=== PATIENT | female | born 1995 | race Caucasian/White ===

== ENCOUNTER 2017-01-04 14:45 | Emergency (ER) | payer OTHER ==
[~2017-01-04] VITALS: Ht 172.7 cm; Wt 73.0 kg
[~2017-01-04 14:45] MED LIST: AMOX1TAB10 PO; IBUP400T22 PO; PREN1TAB49 PO; PRO20 PO
[2017-01-04 14:52] VITALS: Ht 172.7 cm; Wt 73.0 kg
--- NOTE | 2017-01-04 15:36 | ERD ---
ER Documentation Chief Complaint Date/Time DATE: 01/04/17 TIME: 15:34 Chief Complaint PT with rash to B rash , pt house treated for bed bugs. HPI 71-year-old female presents in with a rash. She previously had bedbugs but thinks they have resolved. She has already cleaned her house and washed all of the bedding. She has a rash on her arms mostly. It is itching it is not painful. She has had no fevers. ROS All systems reviewed and are negative except as per history of present illness. Medications Home Meds Active Scripts Ibuprofen* (Motrin*) 400 Mg Tab, 400 MG PO Q6, #30 TAB Prov:FERNANDO,EMANUEL 12/22/16 Amoxicillin/Potassium Clav (Amox-Clav 875-125 mg Tablet) 875-125 mg Tab, 1 TAB PO BID for 10 Days, #20 TAB Prov:FERNANDO,EMANUEL 12/22/16 Reported Medications Nifedipine* (Procardia*) 20 Mg Cap, 20 MG PO Q6, CAP 02/12/16 Vits W-Ca,Fe,Fa(<1MG) () 1 Tab Tablet, 1 TAB PO DAILY 02/07/12 Allergies Allergies: Coded Allergies: No Known Drug Allergies (Verified Allergy, Unknown, 02/20/16) PMhx/Soc History of Surgery: Yes (C SECTION X 2 ) Anesthesia Reaction: No Hx Neurological Disorder: No Hx Respiratory Disorders: No Hx Cardiac Disorders: No Hx Psychiatric Problems: No Hx Miscellaneous Medical Probl: Yes (2 PREVIOUS PREGNANCIES BOTH PREMATURE DELIVERY) Hx Alcohol Use: No Hx Substance Use: No Hx Tobacco Use: No Physical Exam Vitals Vital Signs Date Time Temp Pulse Resp B/P Pulse Ox O2 Delivery O2 Flow Rate FiO2 01/04/17 14:52 99.6 97 18 152/75 98 Physical Exam Const: [] No distress Head: Atraumatic Eyes: Normal Conjunctiva ENT: Normal External Ears, Nose and Mouth. Neck: Full range of motion..~ No meningismus. Back: No midline or flank tenderness Ext: No cyanosis, or edema, bilateral forearms with small erythematous lesions with areas of punctate portions at the center. Neur: Awake and alert Psych: Normal Mood and Affect Procedures/MDM Bedbug rash. Going to treat with permethrin cream. Primary care follow-up in 2 3 days and return precautions. Departure Diagnosis: Primary Impression: Bedbug bite Condition: Stable ALFONZO ANN DO Jan 04, 2017 15:36
[2017-01-04] MEDS ORDERED: ELIM TOP (15:37)
== END 2017-01-04 15:44 | disposition home or self-care (01) ==
LOC: FTE 14:45
DX: S50.862A Insect bite (nonvenomous) of left forearm, initial encounter (principal); S50.861A Insect bite (nonvenomous) of right forearm, initial encounter; W57.XXXA Bitten or stung by nonvenomous insect and other nonvenomous arthropods, initial encounter; Y92.9 Unspecified place or not applicable
CPT/HCPCS: 99283

== ENCOUNTER 2017-01-12 05:40 | Emergency (ER) | payer OTHER ==
[~2017-01-12] VITALS: Ht 160 cm; Wt 72.7 kg
[~2017-01-12 05:40] MED LIST changes: +BENZ100C70 PO; +BENZ1LOZ52 MM; +ELIM TOP; +FERR160T25 PO; +FERR27TA PO; +IBUP-1542 PO; +NIFE30TA2 PO; +ONDA4TAB8 PO; +PREN1TAB17 PO; +PRENATALS; +[UNRECOGNIZED DRUG - REMARK]
[2017-01-12 05:43] VITALS: Ht 160 cm; Wt 72.7 kg
--- NOTE | 2017-01-12 06:36 | ERD ---
ER Documentation Chief Complaint Date/Time DATE: 01/12/17 TIME: 06:24 Chief Complaint gen. abd pain +n/v since 3am. HPI 22-year-old female presents emergency department for abdominal pain and vomiting since 3 AM. Stated that she vomited more than 5 times in the past 24 hours with food particles. Also stated that she felt like she had a fever last night but never took her temperature. Denies headache, shoulder pain, chest pain, shortness of breath, difficulty breathing when lying flat, trauma, , possibility of being , urinary symptoms, vaginal discharge, recent exposure to any illness, recent travel, recent antibiotic use in the last 3 months. No known drug allergies. No past medical history.Surgical history of C- section. Does not take any prescription medication at home. Social: Works at [employer]. Denies smoking, use of alcohol, use of illegal drugs. LMP was December 19, 2016. A2. ROS All systems reviewed and are negative except as per history of present illness. Medications Home Meds Active Scripts Metoclopramide* (Reglan*) 10 Mg Tablet, 10 MG PO Q6 Y for NAUSEA AND/OR VOMITING , #10 TAB Prov:PASILAREINAJACEYKVNG Diehl 01/12/17 Doxylamine/Pyridoxine Hcl (NIKOLAS DR 10-10 MG TABLET) 1 Each Tablet., 2 TAB PO TID Y for NAUSEA, #10 TAB Prov:PASILAREINAJACEYKVNG F 01/12/17 Acetaminophen* (Tylophen*) 500 Mg Capsule, 1 CAP PO Q6H Y for PAIN AND OR ELEVATED TEMP, #20 CAP Prov:PASILAMINDY HUANG 01/12/17 Cephalexin* (Keflex*) 500 Mg Capsule, 500 MG PO QID for 5 Days, CAP Prov:PASILABANJACEYKVNG F 01/12/17 Permethrin* (Elimite*) 5% Cr, 1 APPLIC TOP ONCE, #1 TUB Prov:ALFONZO ANN DO 01/04/17 Ibuprofen* (Motrin*) 400 Mg Tab, 400 MG PO Q6, #30 TAB Prov:FERNANDO,EMANUEL 12/22/16 Amoxicillin/Potassium Clav (Amox-Clav 875-125 mg Tablet) 875-125 mg Tab, 1 TAB PO BID for 10 Days, #20 TAB Prov:FERNANDO,EMANUEL 12/22/16 Reported Medications Nifedipine* (Procardia*) 20 Mg Cap, 20 MG PO Q6, CAP 02/12/16 Vits W-Ca,Fe,Fa(<1MG) () 1 Tab Tablet, 1 TAB PO DAILY 02/07/12 Allergies Allergies: Coded Allergies: No Known Drug Allergies (Verified Allergy, Unknown, 01/04/17) PMhx/Soc History of Surgery: Yes (C SECTION X 2 ) Anesthesia Reaction: No Hx Neurological Disorder: No Hx Respiratory Disorders: No Hx Cardiac Disorders: No Hx Psychiatric Problems: No Hx Miscellaneous Medical Probl: Yes (2 PREVIOUS PREGNANCIES BOTH PREMATURE DELIVERY) Hx Alcohol Use: No Hx Substance Use: No Hx Tobacco Use: No Smoking Status: Never smoker Physical Exam Vitals Vital Signs Date Time Temp Pulse Resp B/P Pulse Ox O2 Delivery O2 Flow Rate FiO2 01/12/17 05:43 98.0 84 20 133/85 99 Physical Exam Const: [] Head: Atraumatic Eyes: Normal Conjunctiva ENT: Normal External Ears, Nose and Mouth. Neck: Full range of motion..~ No meningismus. Resp: Clear to auscultation bilaterally Cardio: Regular rate and rhythm, no murmurs Abd: Soft, non distended. Normal bowel sounds. Right-sided abdominal tenderness on light and deep palpation. Patient is unable to jump due to right- sided abdominal pain. Skin: No petechiae or rashes Back: No midline or flank tenderness Ext: No cyanosis, or edema Neur: Awake and alert Psych: Normal Mood and Affect Result Diagram: 01/12/17 0745 01/12/17 0745 Results 24 hrs Laboratory Tests Test 01/12/17 06:44 01/12/17 07:45 01/12/17 08:40 Urine Color YELLOW Urine Clarity TURBID Urine pH 6.0 Urine Specific [place] 1.013 Urine Ketones NEGATIVEmg/dL Urine Nitrite NEGATIVEmg/dL Urine Bilirubin NEGATIVEmg/dL Urine Urobilinogen NEGATIVEmg/dL Urine Leukocyte Esterase NEGATIVELeu/ul Urine Microscopic RBC 47/HPF Urine Microscopic WBC 9/HPF Urine Squamous Epithelial Cells FEW/HPF Urine Bacteria FEW/HPF Urine Mucus FEW/HPF Urine Hemoglobin 3+mg/dL Urine Glucose NEGATIVEmg/dL Urine Total Protein NEGATIVEmg/dl White Blood Count 13.410^3/ul Red Blood Count 4.1410^6/ul Hemoglobin 12.7g/dl Hematocrit 38.1% Mean Corpuscular Volume 92.0fl Mean Corpuscular Hemoglobin 30.7pg Mean Corpuscular Hemoglobin Concent 33.3g/dl Red Cell Distribution Width 12.9% Platelet Count 88441^3/UL Mean Platelet Volume 11.1fl Neutrophils % 88.8% Lymphocytes % 7.0% Monocytes % 3.5% Eosinophils % 0.1% Basophils % 0.3% Nucleated Red Blood Cells % 0.0/100WBC Neutrophils # (Manual) 1210^3/ul Lymphocytes # 0.910^3/ul Monocytes # 0.510^3/ul Eosinophils # 0.010^3/ul Basophils # 0.010^3/ul Nucleated Red Blood Cells # 0.010^3/ul Sodium Level 142mmol/L Potassium Level 4.4mmol/L Chloride Level 103mmol/L Carbon Dioxide Level 26mmol/L Anion Gap 17 Blood Urea Nitrogen 14mg/dl Creatinine 0.72mg/dl Glucose Level 105mg/dl Calcium Level 9.7mg/dl Total Bilirubin 0.2mg/dl Direct Bilirubin 0.00mg/dl Indirect Bilirubin 0.2mg/dl Aspartate Amino Transf (AST/SGOT) 15IU/L Alanine Aminotransferase (ALT/SGPT) 26IU/L Alkaline Phosphatase 72IU/L Total Protein 7.7g/dl Albumin 4.4g/dl Globulin 3.30g/dl Albumin/Globulin Ratio 1.33 Amylase Level 77U/L Lipase 56U/L Serum HCG, Qualitative POSITIVE Beta HCG, Quantitative 21.9mIU/ml Current Medications Medications (Trade) Dose Ordered Sig/Rissa Route PRN Reason Start Time Stop Time Status Last Admin Dose Admin Ondansetron HCl (Zofran Odt) 4 mg ONCE STAT ODT 01/12/17 06:38 01/12/17 06:40 DC 01/12/17 06:50 Miscellaneous Medication 40 ml 40 ml ONCE ONCE PO 01/12/17 07:00 01/12/17 07:01 DC 01/12/17 06:50 Sodium Chloride (NS) 1,000 ml @ 1,000 mls/hr Q1H ONCE IV 01/12/17 08:00 01/12/17 08:59 DC 01/12/17 07:54 Morphine Sulfate (morphine) 4 mg ONCE STAT IV 01/12/17 08:03 01/12/17 08:05 DC 01/12/17 08:25 Metoclopramide HCl (Reglan) 10 mg ONCE ONCE IV 01/12/17 08:30 01/12/17 08:31 DC 01/12/17 08:25 Cephalexin (Keflex) 500 mg ONCE ONCE PO 01/12/17 13:00 01/12/17 13:01 DC 01/12/17 13:01 Procedures/MDM Examination: Please see physical examination. Disease process, medical treatment was explained to the patient and family member. They verbalized understanding and agreed with the diagnostic tests, medical treatment, and follow-up care. Radiology: OB ultrasound Impression: No intrauterine gestation visualized. Left ovary not visualized. Differential diagnosis includes early , missed or ectopic . Follow-up ultrasound and hCG levels is recommended. Ultrasound of the right upper quadrant Impression: Mild right hydronephrosis. Otherwise unremarkable right upper quadrant ultrasound. Blood works: Reviewed. POC urine : Positive. HCG qualitative: Positive. Beta hCG quantitative:21.9 Urinalysis: UTI and . Treatment: Zofran ODT. GI cocktail. IV insertion. Normal saline 1 L IV bolus. Reglan IV. Morphine IV. Keflex. Re-evaluation: Denies headache, dizziness, blurry vision, neck pain, shoulder pain, chest pain, back pain, abdominal pain, nausea, vomiting. No episode of emesis in the emergency department. Alert and oriented 4. Speaks full and clear sentences. Respirations even and unlabored. Lung sounds clear to auscultation. Active bowel sounds. There is no right upper/right lower/ epigastric/left upper/left lower abdominal tenderness and light and deep palpation. Negative on Rovsings sign. Negative Galilea sign. No peritoneal signs. Ambulatory with steady gait. No neurovascular deficits. No neurological deficits. Consultation: Case was discussed with supervising physician, Dr. Richie Gill who agreed in my medical decision making to discharge the patient and have patient follow-up with her OB or come back in the emergency department in 24-48 hours. Differential diagnosis: Pancreatitis versus appendicitis versus cholecystitis versus abdominal aortic aneurysm versus nephrolithiasis versus pyelonephritis versus urinary tract infection versus abdominal pain Medical decision m[age]-year-old female presents emergency department for abdominal pain and vomiting since 3 AM. Stated that she vomited more than 5 times in the past 24 hours with food particles. Also stated that she felt like she had a fever last night but never took her temperature. Patient's complaint, patient's history about her complaint, my physical findings , diagnostic test results, my reevaluation are consistent with final diagnosis of abdominal pain in , incidental finding of , urinary tract infection and . Medications prescribed are the following: Keflex. Tylenol. Dilegis. vitamins. Patient and family member are made aware of the side effects and adverse reactions of the medications prescribed. Instructed on when to seek emergent and medical attention in case allergic/anaphylactic reactions or severe side effects and or adverse reactions to medications. Patient and family member verbalized understanding. Patient instructed Instructed to follow-up with his PCP in 24-48 hours. Follow-up with OB in the next 24-48 hours. Instructed to Call 911 for chest pain, shortness of breath. Advised to come back here in ED as soon as possible for severity of symptoms which includes but not limited to: any new symptoms; shortness of breath/difficulty of breathing; cardiovascular changes; severe gastrointestinal symptoms; signs and symptoms of bleeding and or infection; signs of compartment syndrome/neurovascular changes; neurological changes/deficits. Patient and family member verbalized understanding. Upon discharge, patient is alert and oriented x 4, speaks full and clear sentences, denies pain, has no neurological deficits, has no neurovascular deficits, difficulty of breathing. Breathing even and unlabored. Lung sounds are clear to auscultation. Not in distress. Appears comfortable. Ambulatory with steady gait. Appears satisfied with care provided here in ED. Departure Diagnosis: Primary Impression: Abdominal pain Additional Impressions: , incidental UTI (urinary tract infection) during Condition: Stable Additional Instructions: Instructed to follow-up with his PCP in 24-48 hours. Follow-up with OB in the next 24-48 hours. Instructed to Call 911 for chest pain, shortness of breath. Advised to come back here in ED as soon as possible for severity of symptoms which includes but not limited to: any new symptoms; shortness of breath/difficulty of breathing; cardiovascular changes; severe gastrointestinal symptoms; signs and symptoms of bleeding and or infection; signs of compartment syndrome/neurovascular changes; neurological changes/deficits. Patient and family member verbalized understanding. MINDY GOODEN Jan 12, 2017 06:36
[2017-01-12] MEDS ORDERED: ONDANSETRON (ODT) 4 MG TAB ODT STA (06:38)
[2017-01-12] MEDS ORDERED: LIDOCAINE/MYLANTA 40 ML BTL PO ONE (07:00)
[2017-01-12 07:13] LABS: ADD UMIC YES; UR ASCORBIC ACID NEGATIVE (NEGATIVE); UR BACTERIA FEW /HPF (NONE SEEN); UR BILIRUBIN (Dip) NEGATIVE (NEGATIVE); UR BLOOD (Dip) 3+ mg/dL (NEGATIVE); UR CLARITY TURBID (CLEAR); UR COLOR YELLOW (YELLOW); UR GLUCOSE (Dip) NEGATIVE (NEGATIVE); UR KETONES (Dip) NEGATIVE (NEGATIVE); UR LEUKOCYTE ESTERASE (Dip) NEGATIVE Leu/ul (NEGATIVE); UR MUCUS FEW /HPF (NONE SEEN); UR NITRITE (Dip) NEGATIVE (NEGATIVE); UR RBC 47 /HPF (0-5); UR SPECIFIC GRAVITY (Dip) 1.013 (1.003-1.030); UR SQUAMOUS EPITHELIAL CELL FEW /HPF (FEW); UR TOTAL PROTEIN (Dip) NEGATIVE (NEGATIVE); UR UROBILINOGEN (Dip) NEGATIVE (NEGATIVE)
[2017-01-12 07:55] LABS: BASOPHILS % 0.3 % (0.0-2.0); EOSINOPHILS % 0.1 % (0.0-7.0); HEMATOCRIT 38.1 % (37.0-47.0); HEMOGLOBIN 12.7 g/dl (12.0-16.0); LYMPHOCYTES # 0.9 10^3/ul (0.8-2.9); MEAN CORPUSCULAR HEMOGLOBIN 30.7 pg (29.0-33.0); MEAN CORPUSCULAR HGB CONC 33.3 g/dl (32.0-37.0); MEAN PLATELET VOLUME 11.1 fl (7.4-10.4); MONOCYTE # 0.5 10^3/ul (0.3-0.9); MONOCYTES % 3.5 % (0.0-11.0); NEUTROPHILS % 88.8 % (39.0-77.0); PLATELET COUNT 275 10^3/UL (140-415); RED BLOOD COUNT 4.14 10^6/ul (4.20-5.40); RED CELL DISTRIBUTION WIDTH 12.9 % (11.5-14.5); WHITE BLOOD COUNT 13.4 10^3/ul (4.8-10.8)
[2017-01-12] MEDS ORDERED: SOD CHLORIDE 0.9% 1,000 ML IV ONE (08:00)
[2017-01-12] MEDS ORDERED: morphine 4 MG/ML VIAL IV STA (08:03)
[2017-01-12 08:18] LABS: ALBUMIN 4.4 g/dl (3.3-4.9); ALBUMIN/GLOBULIN RATIO 1.33; BILIRUBIN,INDIRECT 0.2 mg/dl (0-1.1); BILIRUBIN,TOTAL 0.2 mg/dl (0.2-1.3); CALCIUM 9.7 mg/dl (8.4-10.2); CREATININE 0.72 mg/dl (0.44-1.00); POTASSIUM 4.4 mmol/L (3.5-5.1); TOTAL PROTEIN 7.7 g/dl (6.1-8.1)
[2017-01-12] MEDS ORDERED: METOCLOPRAMIDE 10 MG INJ IV ONE (08:30)
--- NOTE | 2017-01-12 10:23 | RADRPT ---
PROCEDURE: US Pelvis. CLINICAL INDICATION: vaginal bleeding TECHNIQUE: Multiple sonographic images of the pelvis were obtained utilizing a transabdominal and endovaginal technique. The images were reviewed on a PACS workstation. COMPARISON: None. FINDINGS: The uterus is normal in size and demonstrates a normal appearance of the myometrium. The endometria l stripe is heterogeneous in appearance and has the thickness of 16 mm. No intrauterine gestation is noted. The right ovary measures 2.7 x 1.7 x 1.9 cm. The left ovary was not seen. There is a small amount of free fluid in the posterior cul-de-sac. RPTAT: AA IMPRESSION: No intrauterine gestation visualized. Left ovary not visualized. Differential diagnosis includes early , missed or ectopic . Follow-up ultrasound and HCG levels is recommended. .Blair Gallegos MD, Date Time Electronically viewed and signed by .Bliar Gallegos MD, on 01/12/2017 10:23 .S/
--- NOTE | 2017-01-12 12:05 | RADRPT ---
PROCEDURE: Abdominal Ultrasound (right upper quadrant). CLINICAL INDICATION: Right upper quadrant pain. TECHNIQUE: Multiple real-time longitudinal and transverse images of the right upper quadrant of th e abdomen were acquired utilizing a curved array transducer. Images were reviewed on a high-resoluti on PACS workstation. COMPARISON: CT abdomen pelvis 10/15/2014 FINDINGS: The liver is normal in size and echogenicity. No focal masses are identified. There is no evidenc e of intra or extrahepatic ductal dilatation. The common bile duct measures 3.8 mm in diameter. No gallstones or gallbladder wall thickening is seen. The visualized portions of the pancreas are unremarkable with obscuration of the tail of the pancrea s. No free fluid is identified. There is mild right hydronephrosis. No renal calcifications are seen on the right. The right kidne y measures 13.3 cm in length. The visualized portions of the aorta and inferior vena cava are within normal limits. IMPRESSION: 1. Mild right hydronephrosis. 2. Otherwise unremarkable right upper quadrant ultrasound. RPTAT: KK .Sean Cid MD, Date Time Electronically viewed and signed by .Sean Cid MD, MD on 01/12/2017 12:05 .B/
[2017-01-12] MEDS ORDERED: CEPH-443 PO (12:59)
[2017-01-12] MEDS ORDERED: CEPHALEXIN 500 MG CAP PO ONE (13:00)
[2017-01-12] MEDS ORDERED: ACET500C5 PO (13:00)
[2017-01-12] MEDS ORDERED: DOXY1TAB3 PO (13:01)
[2017-01-12] MEDS ORDERED: METO10TA92 PO (13:02)
[2017-01-12 13:24] VITALS: BP 112/72; PULSE 76; RESP 16; TEMP 98.2
== END 2017-01-12 13:26 | disposition home or self-care (01) ==
LOC: FTE 05:40
DX: R10.84 Generalized abdominal pain (principal); N39.0 Urinary tract infection, site not specified; R11.10 Vomiting, unspecified; Z33.1 Pregnant state, incidental
CPT/HCPCS: 36415; 76705; 76801; 76817; 80053; 81001; 82150; 83690; 84702; 84703; 85025; 86900; 86901; 96361; 96374; 96375; J2270; J2765; J7030; Z7502; Z7610